=== PATIENT | male | born 1990 | race American Indian/Alaskan Native ===

== ENCOUNTER 2020-05-17 11:14 | Outpatient (CLI) | payer OTHER ==
--- NOTE | 2020-05-17 12:38 | XRay Report ---
RIGHT KNEE 2 VIEWS INDICATION: RIGHT KNEE PAIN. COMPARISON: None. IMPRESSION: Cortical irregularity overlies the tibial spines on the frontal view. The etiology of th is is unclear. This may be related to previous traumatic bone injury or may represent an avulsion fra cture. It appears to be chronic. No definite acute fracture is appreciated. The joint space is unrem arkable otherwise. No significant joint effusion is detected. If further evaluation is needed, MRI ri ght knee without contrast is recommended. Signer Name: Benjamín Vázquez Jr, MD Signed: 05/17/2020 12:34 PM Workstation Name: [id number]
== END 2020-05-17 11:15 | disposition home or self-care (01) ==
LOC: XRAY 11:14
PROVIDERS: ATTEND Internal Medicine
DX: M25.561 Pain in right knee (principal); F20.9 Schizophrenia, unspecified